=== PATIENT | female | born 1965 | race Asian ===

== ENCOUNTER 2017-07-06 09:11 | Outpatient (CLI) | payer BC ==
[~2017-07-06 09:11] MED LIST: ADIPEX PO; HYDR25TA60 PO; LOSA50TA8 PO; METF500T PO; TENUATE PO
== END 2017-07-06 10:30 | disposition home or self-care (01) ==
LOC: MAMMO 09:11
DX: Z12.31 Encounter for screening mammogram for malignant neoplasm of breast (principal)

== ENCOUNTER 2018-08-02 08:59 | Outpatient (CLI) | payer BC | END 2018-08-02 20:49 | disposition home or self-care (01) | LOC: MAMMO 08:59 | DX: Z12.31 Encounter for screening mammogram for malignant neoplasm of breast (principal) ==

== ENCOUNTER 2020-12-24 08:28 | Outpatient (CLI) | payer BC | END 2020-12-24 22:17 | disposition home or self-care (01) | LOC: US 08:28 | PROVIDERS: ATTEND Nurse Practitioner Family | DX: R13.13 Dysphagia, pharyngeal phase (principal); R22.1 Localized swelling, mass and lump, neck ==